=== PATIENT | male | born 1975 | race Caucasian/White ===

== ENCOUNTER 2017-02-08 13:46 | Emergency (ER) | payer OTHER ==
[~2017-02-08] VITALS: Ht 172.7 cm; Wt 89.5 kg
[2017-02-08 13:56] VITALS: BP 140/78; PULSE 71; RESP 13; O2SAT 98
--- NOTE | 2017-02-08 14:03 | ED.REPORT ---
HPI-GI Bleed Date of Service Feb 08, 2017 ED Provider: Rosanna Khalil History of Present Illness: coughing up blood since 130 . sudden nausea, then vomit a little and then bright red blood. no etoh, took some otc migraine medication 2 pills yesterday. coffee drinker 1 cup this am. no changes in stool. primary care is [facility]. feels fine now. does have heart burn. takes tums has been having an increase in heart burn over the last year Nursing Notes Stated Complaint: COUGHED UP BLOOD,NAUSEA Chief Complaint: Male Abdominal Pain Nursing Notes Reviewed: Yes Allergies: Coded Allergies: No Known Allergies (Unverified , 02/08/17) General Time Seen by Provider: 13:56 Chief Complaint Chief Complaint: Vomiting bright red blood Hx Obtained From: Patient Onset Occurred: 1 - 4 hours ago Past Medical History Past Medical History Denies: Asthma, Diabetes mellitus Past Surgical History wisdom teeth Smoking History Never Smoker Social History Alcohol Use: Denies alcohol use Drug Use: Denies drug use Other Social History: Occupation in the [employer] 02/08/2017 Ambulatory Status Independent Review of Systems Basic Review of Systems Eyes: Vision NL, No discharge Allergy / Immune: No allergy Psychiatric: Normal thought content Physical Exam Initial Vital Signs Vital Signs (First) Date Time Temp Pulse Resp B/P Pulse Ox O2 Delivery O2 Flow Rate FiO2 02/08/17 13:56 36.6 71 13 140/78 98 Room Air Initial VS: Reviewed, Vital signs normal Head / Eyes: Atraumatic, Normocephalic, PERRL ENT: Mucous membranes moist, Conjunctiva normal, No scleral icterus Neck: Supple, Non-tender, Full range of motion Back: No CVA tenderness Lymphatic: No lymphadenopathy Extremities: Vascular intact, Neuro intact, No swelling, No tenderness Skin: Warm, Dry, No cyanosis Neurologic: Alert, Oriented, Nonfocal Psychiatric: Mood/affect normal, Behavior normal, Normal thought content General/Constitutional: Awake, Alert, No acute distress, Well appearing, Well developed, Well hydrated, Well nourished, Cooperative, Not toxic appearing Respiratory / Chest: Atraumatic, Breath sounds NL, Breath sounds = bilat, No respiratory distress Cardiovascular: Heart rate NL, Regular rhythm, Heart sounds NL, No gallop Abdomen: Atraumatic, Soft, Non-tender, McBurney's non-tender Interpretation & Diagnostics Lab Results Interpretation Result Diagram: 02/08/17 1445 02/08/17 1445 Test 02/08/17 14:45 White Blood Count 6.8th/mm3 (3.8-10.1) Red Blood Count 4.82mil/mm3 (4.40-5.80) Hemoglobin 14.5g/dL (13.8-17.2) Hematocrit 42.2% (41.0-50.0) Mean Corpuscular Volume 87.6fL (81-100) Mean Corpuscular Hemoglobin 30.1pg (27.0-35.0) Mean Corpuscular Hemoglobin Concent 34.4% (32.0-37.0) Red Cell Distribution Width 13.3% (12.3-15.4) Platelet Count 252bil/L (150-400) Neutrophils (%) (Auto) 48.4% (40-74) Lymphocytes (%) (Auto) 34.9% (14-46) Monocytes (%) (Auto) 8.8% (4-12) Eosinophils (%) (Auto) 6.5% (0-5) Basophils (%) (Auto) 1.0% (0-3) Sodium Level 141mEq/L (134-144) Potassium Level 4.1mEq/L (3.5-5.2) Chloride Level 104mEq/L (97-108) Carbon Dioxide Level 23mmol/L (18-29) Blood Urea Nitrogen 15mg/dL (6-24) Creatinine 0.87mg/dL (0.76-1.27) Estimat Glomerular Filtration Rate 103mL/min (>59) Glucose Level 111mg/dL (60-99) Calcium Level 9.3mg/dL (8.5-10.1) Total Bilirubin 0.5mg/dL (0.0-1.2) Aspartate Amino Transf (AST/SGOT) 29U/L (0-50) Alanine Aminotransferase (ALT/SGPT) 25U/L (0-44) Alkaline Phosphatase 32U/L (25-150) Total Protein 6.9g/dL (6.4-8.4) Albumin 4.2g/dL (3.4-5.0) X-Ray Chest Interpretation Chest Xray Interpretation: PROCEDURE: X-RAY CHEST, TWO VIEWS ([id number]) INDICATIONS: 41 year-old male with hemoptysis. TECHNIQUE: 2 views of the chest were acquired. COMPARISON: None. FINDINGS: Surgical changes and devices: None. Lungs and pleura: No pleural effusions or pneumothorax. Lungs are clear. Mediastinum: Mediastinal contours are normal. Heart size is normal. Bones and chest wall: No suspicious bony abnormalities. Soft tissues appear unremarkable. IMPRESSION: No acute cardiopulmonary disease. Dictated by: Tenzin Moreno M.D. on 02/08/2017 at 14:29 Approved by: Tenzin Moreno M.D. on 02/08/2017 at 14:30 Re-Eval/Medical Decision Med Decision/Clinical Course 41 year old male presents to the ER with one episode of vomiting bright red blood. Had no episodes in the ER. Labs are normal, posturals are normal. discussed with patient need to avoid triggers. advised if vomiting blood returns will need to return to ER. Will need upper GI. Stressed importance of follow up. No sign of hemmorrage at this time Discharge & Departure Impression: Primary Impression: Bleeding gastric ulcer Gastric ulcer chronicity: acute Qualified Code: K25.0 - Acute gastric ulcer with hemorrhage Disposition: Home Patient Instructions: Diet for Stomach Ulcers and Gastritis (ED) Additional Instructions: Your posturals are normal. Your labs are normal. There have been no additional episodes of bleeding since you have been in the ER. Avoid peppermint. spear ment , cinnamon, winter mint, coffee, dark pop, red sauce,orange juice. Start omeprazole 20 mg in the am and pm for 30 days. Also carafate 1 gm 4 times a day for 30 days. If the bleeding returns, return to the ER. YOU will need an upper GI. Someone needs to take a look and make sure the bleeding is related to an active ulcer. Please call your primary care provider at the [facility] to get this set up. REturn if the bleeding returns. Referrals: OTHER,PHYSICIAN EDSupervising Provider for APC: Tonny Bloom DO copies to: OTHER,PHYSICIAN Rosanna Khalil Feb 08, 2017 14:02
[2017-02-08] MEDS ORDERED: Pantoprazole 4 mg/mL 10 mL Inj IVPUSH ONE (14:10)
[2017-02-08] MEDS ORDERED: Sucralfate 100 mg/mL 10 mL Suspension PO ONE (14:10)
--- NOTE | 2017-02-08 14:31 | DRSVH ---
PROCEDURE: X-RAY CHEST, TWO VIEWS ([id number]) INDICATIONS: 41 year-old male with hemoptysis. TECHNIQUE: 2 views of the chest were acquired. COMPARISON: None. FINDINGS: Surgical changes and devices: None. Lungs and pleura: No pleural effusions or pneumothorax. Lungs are clear. Mediastinum: Mediastinal contours are normal. Heart size is normal. Bones and chest wall: No suspicious bony abnormalities. Soft tissues appear unremarkable. IMPRESSION: No acute cardiopulmonary disease. Dictated by: Tenzin Moreno M.D. on 02/08/2017 at 14:29 Approved by: Tenzin Moreno M.D. on 02/08/2017 at 14:30
[2017-02-08 15:12] LABS: EOSINOPHILS % (AUTO) 6.5 % (0-5); MONOCYTES % (AUTO) 8.8 % (4-12); Mean Corpuscular Hemoglobin 30.1 pg (27.0-35.0); Mean Corpuscular Volume 87.6 fL (81-100); NEUTROPHILS % (AUTO) 48.4 % (40-74); Platelet Count 252 bil/L (150-400)
[2017-02-08 15:30] VITALS: BP 123/71; PULSE 86; RESP 15; O2SAT 98
[2017-02-08 15:31] VITALS: BP 131/66; PULSE 64; O2SAT 97
[2017-02-08 15:33] VITALS: BP 121/70; PULSE 62; O2SAT 97
[2017-02-08 16:13] VITALS: BP 129/76; PULSE 57; RESP 22; O2SAT 100
== END 2017-02-08 16:17 | disposition home or self-care (01) ==
LOC: SED 13:46
DX: K25.0 Acute gastric ulcer with hemorrhage (principal)
CPT/HCPCS: 36415; 71020; 80053; 85025; 96374; 99284; S0164

== ENCOUNTER → 2017-03-10 | Day surgery (SDC) | payer OTHER ==
[~2017-03-10] VITALS: Ht 172.7 cm; Wt 86.2 kg
[~2017-03-10] MED LIST: 0.9% Sodium Chloride 1,000 ML IV SCH; OMEP20CA11 PO; SUCR1TAB PO; SUCR1TAB30 PO; Sodium Chloride LOK Flush 10 mL Syringe IV PRN; fentaNYL-PF 50 mCg/mL 2 mL Inj IVPUSH PRN
[2017-03-10 13:44] VITALS: BP 132/87; PULSE 50; RESP 14; O2SAT 100
[2017-03-10 14:50] VITALS: BP 131/81; PULSE 49; RESP 14; O2SAT 96
[2017-03-10 14:58] VITALS: BP 133/79; PULSE 60; RESP 12; O2SAT 99
[2017-03-10 15:05] VITALS: BP 133/79; PULSE 57; RESP 12; O2SAT 100
--- NOTE | 2017-03-10 16:50 | ENDO ---
[address] [address] ENDOSCOPY PROCEDURE PATIENT: ISHAN BERNAL : 1975 MR#: [id number] ADMIT: 03/10/2017 JOB ID: [id number] DATE OF SERVICE: 03/10/2017 TYPE OF OPERATION: Esophagogastroduodenoscopy with biopsy. PREOPERATIVE DIAGNOSIS(ES): Hematemesis. POSTOPERATIVE DIAGNOSIS(ES): Normal upper endoscopy, status post biopsy. ANESTHESIA: Fentanyl 75 mcg, Versed 3 mg IV administered. COMPLICATIONS: None. BLOOD LOSS: Minimal. DESCRIPTION OF PROCEDURE: After risks and benefits explained to the patient, informed consent was obtained. After adequate anesthesia administered, upper endoscope was inserted into the esophagus, stomach, second portion duodenum and mucosa carefully examined. After the procedure, the scope was withdrawn and procedure terminated. FINDINGS: Upon inspection of the esophagus, the esophagus appeared normal without masses, ulcers, lesions. Z-line located 40 cm from the incisors. Upon entering the stomach, the stomach was also normal. No masses, ulcers, or lesions. Retroflexion was normal. No evidence of Glory-Camarena tear. Duodenal bulb, first and second portion normal. Biopsies taken of antrum and distal esophagus. IMPRESSION: 1. Normal upper endoscopy. 2. Status post biopsy. RECOMMENDATION: Await pathology results. Follow up in GI clinic as needed.
--- NOTE | 2017-03-13 11:44 | PATH ---
SURGICAL PATHOLOGY Attending Physician:Pavan Spencer MD CASE STATUS: Signed Out PATIENT NAME: ISHAN BERNAL PID: [id number] : 1975 DATE COLLECTED:03/10/2017 00:00 SPECIMEN: 1: Stomach, Antrum, Biopsy 2: Gastric, Biopsy 3: Esophagus, Biopsy CLINICAL HISTORY: 1). ANTRUM BIOPSY 2). GASTRIC BODY BIOPSY, RULE OUT H.PYLORI 3). DISTAL ESOPHAGUS BIOPSY FINAL DIAGNOSIS: 1. Antrum, Biopsy: Gastric antral mucosa with chronic gastritis. Negative for Helicobacter organisms by immunohistochemistry. Negative for intestinal metaplasia, dysplasia, or malignancy. 2. Gastric Body, Biopsy: Gastric body mucosa with no diagnostic abnormality. No evidence of Helicobacter organisms on H&E. Negative for intestinal metaplasia, dysplasia, or malignancy. 3. Distal Esophagus, Biopsy: Squamocolumnar junctional mucosa with greater than 50 eosinophils per 40X high-power field; see comment. Negative for intestinal metaplasia, dysplasia, or malignancy. ICD10: K92.0 NOTE: Part 3: There is significant histologic overlap between reflux esophagitis and eosinophilic esophagitis, particularly in the distal esophagus. That said, greater than 15 eosinophils per high-power field is unusual in reflux esophagitis alone, which raises the possibility of eosinophilic esophagitis in the appropriate clinical and endoscopic setting. Additionally, PPI-responsive esophageal eosinophilia may also be a consideration. GROSS DESCRIPTION: The specimen is received in three formalin filled containers labeled with the patient's name. 1). The specimen is labeled "antrum" and consists of a 0.3 x 0.2 x 0.2 CM portion of tissue which is entirely submitted in cassette 1A. 2). The specimen is labeled "gastric body" and consists of 2 portions of tissue which aggregate to 0.3 x 0.3 x 0.2 CM. The specimen is entirely submitted in cassette 2A. 3). The specimen is labeled "distal esophagus" and consists of 2 portions of tissue which aggregate to 0.2 x 0.2 x 0.2 CM. The specimen is entirely submitted in cassette 3A. 03/11/2017DC MICRO DESCRIPTION: Part 1: An immunohistochemical stain was performed to evaluate for Helicobacter organisms and is negative. A control stain showed appropriate reactivity. * This test was developed and its performance characteristics determined by [facility]. It has not been cleared or approved by the U.S. Food and Drug Administration. The FDA has determined that such clearance or approval is not necessary. This test is used for clinical purposes. It should not be regarded as investigational or for research. ICD-9 CODES: CPT CODES: 1: 94062, 22923 2: 06519 3: 04271 Electronically Signed Out Edin Reyna MD, Ph.D. [facility] [address], [place] [address] Technical component performed at [facility], [address], [place], [address]
== END | disposition home or self-care (01) ==
LOC: END 00:45
PROVIDERS: ATTEND Internal Medicine Gastroenterology
DX: K29.50 Unspecified chronic gastritis without bleeding (principal); K20.0 Eosinophilic esophagitis
CPT/HCPCS: 43239; G0500; J2250; J3010; J7030